=== PATIENT | male | born 1965 | race Caucasian/White ===

== ENCOUNTER 2017-03-04 17:18 | Inpatient (IN) | payer SELFPAY ==
--- NOTE | 2017-03-04 18:31 | ED PDOC ---
HPI: Psych/Substance Abuse Time Seen by Provider: 03/04/17 18:18 Chief Complaint (Nursing): Psychiatric Evaluation Chief Complaint (Provider): Psychiatric Evaluation History Per: Patient History/Exam Limitations: no limitations Current Symptoms Are (Timing): Still Present Suicide/Self Injury Attempted (Context): None Modifying Factor(s): None Severity: Moderate Associated Symptoms: Anxiety, Depression, Suicidal Thoughts. denies: Suicidal Plan Additional Complaint(s): 51 year old male patient with a pertinent medical history of anxiety and depression presents ro the ED for a psychiatric evaluation. He reports that he has been feeling anxious for the past 1x month and thinks it is because he moved from [place] to [place] (1x month ago) with his partner. He is currently taking Cymbalta (started taking it 4x months ago for depression). He reports that the anxiety is disrupting his life and his ability to work. He reports that he has been having suicidal thoughts, but no plan. PMD: Patient does not recall. Past Medical History Reviewed: Historical Data, Nursing Documentation, Vital Signs Vital Signs: Last Vital Signs Temp 97.5 F L 03/04/17 17:21 Pulse 109 H 03/04/17 17:21 Resp 20 03/04/17 17:21 BP 154/94 H 03/04/17 17:21 Pulse Ox 96 03/04/17 17:21 - Medical History PMH: Anxiety, Depression - Family History Family History: States: No Known Family Hx - Social History Alcohol: Other (has been sober from substances and alcohol for 13x years.) Drugs: Denies - Allergies Allergies/Adverse Reactions: Allergies Allergy/AdvReac Type Severity Reaction Status Date / Time No Known Allergies Allergy Verified 03/04/17 17:21 Review of Systems ROS Statement: Except As Marked, All Systems Reviewed And Found Negative Psych: Positive for: Anxiety, Depression, Suicidal ideation (no plan) Physical Exam - Reviewed Nursing Documentation Reviewed: Yes Vital Signs Reviewed: Yes - Physical Exam Appears: Positive for: Well, Non-toxic, No Acute Distress Head Exam: Positive for: ATRAUMATIC, NORMOCEPHALIC Skin: Positive for: Normal Color, Warm, Dry ENT: Negative for: Other (no alcohol on breath) Cardiovascular/Chest: Positive for: Regular Rate, Rhythm, Chest Non Tender Respiratory: Positive for: Normal Breath Sounds. Negative for: Respiratory Distress Neurologic/Psych: Positive for: Alert, Oriented (3x). Negative for: Mood/Affect - Laboratory Results Result Diagrams: 03/04/17 19:05 03/04/17 19:05 - ECG ECG: Positive for: Interpreted By Me, Viewed By Me ECG Rhythm: Positive for: Normal ST Segment, Sinus Rhythm (normal at 72). Negative for: ST/T Changes O2 Sat by Pulse Oximetry: 96 (RA) Pulse Ox Interpretation: Normal - Radiology X-Ray: Interpreted by Me, Viewed By Me X-Ray Interpretation: No Acute Disease (normal) Medical Decision Making Medical Decision Makin:18 Initial impression: 51 year old male with a history of depression and anxiety has anxiety and suicidal ideation. Initial plan: * crisis evaluation as ordered * XRay chest 2 views * EKG * alcohol serum * CMP * drug screen, urinary * CBC * reevaluation 18:26 Chest XRay is normal EKG is normal Pt will be admitted to psych for depression under MD lyla pt is medically cleared. Scribe Attestation: Documented by Soni Guy, acting as a scribe for Brittany Henry MD. Provider Scribe Attestation: All medical record entries made by the Scribe were at my direction and personally dictated by me. I have reviewed the chart and agree that the record accurately reflects my personal performance of the history, physical exam, medical decision making, and the department course for this patient. I have also personally directed, reviewed, and agree with the discharge instructions and disposition. Disposition - Clinical Impression Clinical Impression: Depression - Patient ED Disposition Is Patient to be Admitted: Yes - Disposition Disposition Time: 19:39 Condition: STABLE - Pt Status Changed To: Hospital Disposition Of: Inpatient - Admit Certification Admit to Inpatient:: After my assessment, the patient will require hospitalization for at least two midnights. This is because of the severity of symptoms shown, intensity of services needed, and/or the medical risk in this patient being treated as an outpatient. - POA Present On Arrival: None
[2017-03-04 19:23] LABS: BASO % 0.5 % (0.0-2.0); EOS # 0.2 K/uL (0.0-0.7); EOS % 3.5 % (0.0-4.0); LYMPH # 1.5 K/uL (1.0-4.3); LYMPH % 26.6 % (20.0-40.0); MEAN CELL VOLUME 89.2 fl (80.0-94.0); MEAN CORPUSCULAR HEMOGLOBIN 29.7 pg (27.0-31.0); MEAN CORPUSCULAR HGB CONC 33.3 g/dL (33.0-37.0); MEAN PLATELET VOLUME 8.6 fl (7.2-11.7); MONO # 0.7 K/uL (0.0-0.8); MONO % 12.4 % (0.0-10.0); NEUT # 3.3 K/uL (1.8-7.0); WHITE BLOOD COUNT 5.8 K/uL (4.8-10.8)
[2017-03-04 19:30] LABS: ALB/GLOB RATIO 1.4 (1.0-2.1); ALCOHOL SERUM < 10 mg/dl (0-10); ALKALINE PHOSPHATASE 59 U/L (38-126); ALT/SGPT 22 U/L (21-72); AST/SGOT 31 U/L (17-59); BILIRUBIN,TOTAL 0.6 mg/dl (0.2-1.3); BLOOD UREA NITROGEN 16 mg/dl (9-20); CALCIUM 9.4 mg/dL (8.4-10.2); CARBON DIOXIDE 27 mmol/L (22-30); CHLORIDE 108 mmol/L (98-107); GFR AFRICAN-AMERICAN > 60; GLUCOSE,RANDOM 104 mg/dL (75-110); POTASSIUM 3.9 MMOL/L (3.6-5.0); SODIUM 146 mmol/l (132-148); TOTAL PROTEIN 7.2 G/DL (6.3-8.2)
[2017-03-04 20:14] VITALS: O2SAT 99
[2017-03-04] MEDS ORDERED: Alum-Mag Hydrox-Simethicone Susp (30 mL) PO PRN (21:36)
[2017-03-04] MEDS ORDERED: Bismuth Subsalicylate 262 mg/15 ml Sus (240 ml) PO PRN (21:36)
[2017-03-04] MEDS ORDERED: DiphenhydrAMINE 50 mg/ml Inj IM PRN (23:29)
[2017-03-05 08:34] LABS: T4 7.66 ug/dl (5.5-11.0)
[2017-03-05 08:48] LABS: THYROID STIMULATING HORMONE 1.8 mIU/ML (0.46-4.68)
--- NOTE | 2017-03-05 09:02 | CARD ---
APPROVED REPORT EKG Measurement Heart [id number] <Conclusion> Normal sinus rhythm Normal ECG
--- NOTE | 2017-03-05 10:53 | CP.PCM.CON ---
History of Present Illness - History of Present Illness History of Present Illness: Reason for consult: per protocol HPI: 51 year old male with PMH anxiety admitted to psych due to anxiety. Patient states he has been working for the past month "just to get through the day" and yesterday after work patient "broke down" on the bus, and after he got home felt he needed to go to the emergency room. Patient is stable, he is currently in no acute distress. Patient has no other complaints at this time. ROS: per HPI all other systems reviewed and negative by me PMSH: anxiety FH: denies SH: denies tobacco, etoh, ivdu, currently working. Meds: per reconciliation NKDA Temp Pulse Resp BP Pulse Ox 97.7 F 65 19 114/70 99 03/05/17 05:50 03/05/17 05:50 03/05/17 05:50 03/05/17 05:50 03/04/17 20:10 Gen: WDWN, cooperative, alert HEENT: NCAT, PERRL, EOMI, no erythema, exudates, gross hearing intact, no lesions Neck: Soft, supple, no lymphadenopathy, no JVD Heart: +S1S2, RRR, No MRG Lung: CTAB, No WRR Abd: soft, NT, ND, BSx4, no HSM, no masses Ext: warm, well perfused, pedal pulses intact Neuro: AAOx3, Strength equal bilaterally UE/LE Skin: Warm, Dry, no rash Psych: Normal mood, affect with appropriate range 03/04/17 19:05 03/04/17 19:05 Start Date/Time Active Medications 03/04/17 21:36 Acetaminophen [Tylenol 325mg tab] 650 mg PO Q4 PRN Aluminum Hydroxide/Magnesium [Maalox Plus 30 ml] 30 ml PO Q4 PRN Bismuth Subsalicylate [Pepto-Bismol] 524 mg PO Q4 PRN Magnesium Hydroxide [Milk Of Magnesia] 30 ml PO HS PRN 03/04/17 22:00 risperiDONE [RisperDAL Tab] 0.5 mg PO HS 03/04/17 23:29 DiphenhydrAMINE [Benadryl] 50 mg IM Q6 PRN DiphenhydrAMINE [Benadryl] 50 mg PO Q6 PRN Haloperidol Lactate [Haldol] 5 mg IM Q4 PRN Haloperidol [Haldol] 5 mg PO Q4 PRN LORazepam [Ativan] 2 mg IM Q4 PRN LORazepam [Ativan] 2 mg PO Q4 PRN 03/04/17 23:30 DiphenhydrAMINE [Benadryl] 50 mg PO HS PRN 03/05/17 09:00 DULoxetine [Cymbalta] 60 mg PO DAILY 51 year old male with PMH anxiety admitted to psych due to anxiety. Patient states he has been working for the past month "just to get through the day" and yesterday after work patient "broke down" on the bus, and after he got home felt he needed to go to the emergency room. Patient is stable, he is currently in no acute distress. Patient has no other complaints at this time. Anxiety Management per psychiatric team Past Patient History - Past Social History Alcohol: Other (has been sober from substances and alcohol for 13x years.) Drugs: Denies - CARDIAC Hx Cardiac Disorders: No - PULMONARY Hx Tuberculosis: No - NEUROLOGICAL HX Cerebrovascular Accident: No Hx Seizures: No - HEMATOLOGICAL/ONCOLOGICAL Hx Cancer: No Hx Human Immunodeficiency Virus (HIV): No - GENITOURINARY/GYNECOLOGICAL Hx Sexually Transmitted Disorders: No - PSYCHIATRIC Hx Anxiety: Yes Hx Depression: Yes Hx Substance Use: No - ANESTHESIA Hx Anesthesia: No Hx Anesthesia Reactions: No Hx Malignant Hyperthermia: No Has any member of the family had a problem w/ anesthesia?: No Meds Allergies/Adverse Reactions: Allergies Allergy/AdvReac Type Severity Reaction Status Date / Time No Known Allergies Allergy Verified 03/04/17 17:21 - Medications Medications: Current Medications Acetaminophen (Tylenol 325mg Tab) 650 mg PO Q4 PRN PRN Reason: Pain, moderate (4-7) Al Hydrox/Mg Hydrox/Simethicone (Maalox Plus 30 Ml) 30 ml PO Q4 PRN PRN Reason: Dyspepsia Bismuth Subsalicylate (Pepto-Bismol) 524 mg PO Q4 PRN PRN Reason: Diarrhea Diphenhydramine HCl (Benadryl) 50 mg PO Q6 PRN PRN Reason: Extrapyramidal Symptoms Diphenhydramine HCl (Benadryl) 50 mg IM Q6 PRN PRN Reason: Extrapyramidal S/S Unable PO Diphenhydramine HCl (Benadryl) 50 mg PO HS PRN PRN Reason: Sleep Last Admin: 03/05/17 01:08 Dose: 50 mg Duloxetine HCl (Cymbalta) 60 mg PO DAILY [facility] Last Admin: 03/05/17 09:23 Dose: 60 mg Haloperidol (Haldol) 5 mg PO Q4 PRN PRN Reason: Agitation Haloperidol Lactate (Haldol) 5 mg IM Q4 PRN PRN Reason: Agitation, Unable to Take PO Lorazepam (Ativan) 2 mg PO Q4 PRN PRN Reason: Anxiety/Agitation Last Admin: 03/05/17 09:22 Dose: 2 mg Lorazepam (Ativan) 2 mg IM Q4 PRN PRN Reason: Anxiety/Agitation,Unable PO Magnesium Hydroxide (Milk Of Magnesia) 30 ml PO HS PRN PRN Reason: Constipation Risperidone (Risperdal Tab) 0.5 mg PO HS [facility] Last Admin: 03/04/17 21:13 Dose: 0.5 mg Results - Vital Signs Recent Vital Signs: Last Vital Signs Temp 97.7 F 03/05/17 05:50 Pulse 65 03/05/17 05:50 Resp 19 03/05/17 05:50 BP 114/70 03/05/17 05:50 Pulse Ox 99 03/04/17 20:10 - Labs Result Diagrams: 03/04/17 19:05 03/04/17 19:05 Labs: Laboratory Results - last 24 hr 03/05/17 06:30 Ferritin 138.0 Triglycerides 100 Cholesterol 223 H LDL Cholesterol Direct 135 H HDL Cholesterol 53 Vitamin B12 532 Free T4 1.00 Thyroxine (T4) 7.66 TSH 3rd Generation 1.80
--- NOTE | 2017-03-05 12:37 | PCM.PSYCH ---
Initial Psychiatric Evaluation - Initial Psychiatric Evaluation Type of Admission: Voluntary Legal Status: Capacity Chief Complaint (in patient's own words): i think the move affected me Patient's Reaction to Hospitalization: hopeful, cooperative History of Present Illness and Precipitating Events: 51 yo male living with his domestic partner of the last 13 years in [facility] where he moved from [place] 1 month ago. pt has been in outpt treatment for years for anxiety and depression, has never been hospitalized and has never had any suicidal thoughts/behaviors. pt reports he and partner moved back to the area a month ago for partner's job. 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 he reports that work usually provides structure and a way to free himself of anxiety. however, since his return, the pt's anxiety has become more persistent and intense. he is having trouble sleeping and was started on risperdal by his md in [place]. he reports he is anxious about everything and cannot focus or concentrate. he feels overwhelmed with worry, has racing heart and other symptoms of panic. he reports he has actually started to have suicidal thoughts because he is feeling hopeless that the anxiety will not go away. 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 pt wants to be linked to local treatment providers. pt has a history of being bullied. other stressors included a 1/2 sister has reached out after finding the patient on-line. pt reports his partner is very supportive and there is no relationship stress. Current Medications: Active Medications Generic Name Dose Route Start Last Admin Trade Name Freq PRN Reason Stop Dose Admin Acetaminophen 650 mg 03/04/17 21:36 Tylenol 325mg Tab PO Q4 PRN Pain, moderate (4-7) Al Hydrox/Mg Hydrox/Simethicone 30 ml 03/04/17 21:36 Maalox Plus 30 Ml PO Q4 PRN Dyspepsia Bismuth Subsalicylate 524 mg 03/04/17 21:36 Pepto-Bismol PO Q4 PRN Diarrhea Diphenhydramine HCl 50 mg 03/04/17 23:29 Benadryl PO Q6 PRN Extrapyramidal Symptoms Diphenhydramine HCl 50 mg 03/04/17 23:29 Benadryl IM Q6 PRN Extrapyramidal S/S Unable PO Diphenhydramine HCl 50 mg 03/04/17 23:30 03/05/17 01:08 Benadryl PO 50 mg HS PRN Administration Sleep Duloxetine HCl 90 mg 03/06/17 09:00 Cymbalta PO DAILY LOLY Haloperidol 5 mg 03/04/17 23:29 Haldol PO Q4 PRN Agitation Haloperidol Lactate 5 mg 03/04/17 23:29 Haldol IM Q4 PRN Agitation, Unable to Take PO Lorazepam 2 mg 03/04/17 23:29 Ativan IM Q4 PRN Anxiety/Agitation,Unable PO Lorazepam 1 mg 03/05/17 12:02 Ativan PO Q4 PRN Anxiety/Agitation Magnesium Hydroxide 30 ml 03/04/17 21:36 Milk Of Magnesia PO HS PRN Constipation Quetiapine Fumarate 25 mg 03/05/17 22:00 Seroquel PO HS LOLY Past Psychiatric History - Past Psychiatric History Previous Treatment History: None Explanation of prior treatment: states cymbalta has been very helpful for depression. History of Abuse: bullied in child [place] years History of ETOH/Drug Use: denies current use pt recovered alcoholic- 13 years sober History of Family Illness: denies Pertinent Medical Hx (Current Medical&Sleep Prob, Allergies): Allergies Allergy/AdvReac Type Severity Reaction Status Date / Time No Known Allergies Allergy Verified 03/04/17 17:21 DULoxetine [Cymbalta] 60 mg PO DAILY 03/04/17 risperiDONE [RisperDAL] 0.5 mg PO HS 03/04/17 denies chronic medical issues Review of Systems - Psychiatric Psychiatric: As Per HPI, Abnormal Sleep Pattern, Anxiety, Difficulty Concentrating, Suicidal Ideation (denies plan/intent) Mental Status Examination - Personal Presentation Personal Presentation: Looks stated age - Affect Affect: Constricted - Motor Activity Motor Activity: Calm - Reliability in Providing Information Reliability in Providing Information: Good - Speech Speech: Organized - Mood Mood: Anxious - Formal Thought Process Formal Thought Process: No Impairment - Obsessions/Compulsions Obsessions: No Compulsions: No - Cognitive Functions Orientation: Person, Place, Situation, Time Sensorium: Alert Attention/Concentration: Attentive Abstract Thinking: As evidence by abstract perception of proverbs Estimate of Intelligence: Average Judgement: Intact, as evidence by: Insight regarding need for hospitalization Memory: Recent intact, as evidence by: Ability to recall events of the day, Remote intact, as evidenced by: Abilit to recall sig. life events - Risk Risk: Suicidal (denies plan/intent. no past suicidal behaviors), Diminished functioning - Strength & Assets Inventory Strength & Assets Inventory: Intelligence, Family support, Employment history, Life experience, Cooperative DSM 5 DX - DSM 5 DSM 5 Diagnosis: major depression recurrent moderate adjustment disorder with anxiety r/o panic disorder alcohol dependence, in sustained remission - Recommended/Plan of Treatment Treatment Recommendations and Plan of Treatment: admit to 3ns for safety and observation gather collateral information provide supportive therapy adjust medications- increase cymbalta. dc risperdal and start low dose seroquel at night. will start low dose ativan prn for panic. discussed r/b/se with pt who agrees. hospitalist consult disposition planning- refer to outpt providers Projected ELOS: 3-5 days Prognosis: fair - Smoking Cessation Smoking Cessation Initiated: No
--- NOTE | 2017-03-05 15:37 | RAD ---
HISTORY: medical eval COMPARISON: No prior. TECHNIQUE: Chest PA and lateral FINDINGS: LUNGS: No active pulmonary disease. PLEURA: No significant pleural effusion identified. No pneumothorax apparent. CARDIOVASCULAR: Normal. OSSEOUS STRUCTURES: No significant abnormalities. VISUALIZED UPPER ABDOMEN: Normal. OTHER FINDINGS: None. IMPRESSION: No active disease.
[2017-03-05 17:22] LABS: FOLATE 13.6 ng/mL
[2017-03-05] MEDS: Magnesium Hydroxide Susp 30 ml UD PO PRN (21:28)
--- NOTE | 2017-03-06 14:24 | PCM.PYCHPN ---
Psychiatric Progress Note - Psychiatric Progress Note Patient seen today, length of contact: in treatment team Patient Chief Complaint: i feel a little better Problems Identified/Issues Discussed: pt discussed having poor sleep because roomate snoring. pt denies feeling chills , pain, dizziness or palpitations despite elevated temp this am. repeat was wnl. pt still anxious and worries that he cannot function if this level of anxiety continues. he reports some trouble urinating, but denies dysuria. he states this problem has been present in the past. Medical Problems: states cymbalta has been very helpful for depression. Medication Change: No Medical Record Reviewed: Yes Mental Status Examination - Cognitive Function Orientation: Person, Place, Situation, Time Memory: Intact Attention: WNL Concentration: WNL Association: WN Fund of Knowledge: WN Decription of patient's judgement and insights: fair - Mood Mood: Anxious - Affect Affect: Constricted - Formal Thought Process Formal Thought Process: No Impairment Psychotic Thoughts and Behaviors: denies any a/v hallucinations - Suicidal Ideation Suicidal Ideation: No Plan: denies currently - Homicidal Ideation Homicidal Ideation: No Goal/Treatment Plan - Goal/Treatment Plan Need for Continued Stay: Remain at risks for inpatient hospitalization, Discharge may exacerbated symptoms Progress Toward Problem(s) and Goals/Treatment Plan: mdd recurrent severe adjustment disorder with anxiety will continue current medications will check cbc/ua because of urinary complaints, increased temp encourage participation in groups disposition planning Estimated Date of D/C: 03/10/17
[2017-03-06 16:24] LABS: RBC URINE 2 /hpf (0-3); URINE BACTERIA FEW (<OCC); URINE BILIRUBIN NEGATIVE (NEGATIVE); URINE BLOOD MODERATE (NEGATIVE); URINE COLOR YELLOW (YELLOW); URINE GLUCOSE (UA) NEG (Normal); URINE KETONE NEGATIVE (NEGATIVE); URINE LEUKOCYTE ESTERASE SMALL Leu/uL (Negative); URINE PROTEIN NEGATIVE (NEGATIVE); URINE UROBILINOGEN 0.2-1.0 mg/dL (0.2-1.0); WBC URINE 31 /hpf (0-5)
[2017-03-06 16:59] LABS: BASO # 0.1 K/uL (0.0-0.2); BASO % 0.4 % (0.0-2.0); EOS % 0.2 % (0.0-4.0); HEMATOCRIT 41.4 % (35.0-51.0); LYMPH # 0.9 K/uL (1.0-4.3); LYMPH % 7.8 % (20.0-40.0); MEAN CELL VOLUME 89.1 fl (80.0-94.0); MEAN CORPUSCULAR HEMOGLOBIN 29.8 pg (27.0-31.0); MEAN CORPUSCULAR HGB CONC 33.4 g/dL (33.0-37.0); MEAN PLATELET VOLUME 8.2 fl (7.2-11.7); MONO # 1.3 K/uL (0.0-0.8); MONO % 10.4 % (0.0-10.0); NEUT # 9.9 K/uL (1.8-7.0); NEUT % 81.2 % (50.0-75.0); PLATELET COUNT 158 K/uL (130-400); RED CELL DISTRIBUTION WIDTH 13.6 % (11.5-14.5); WHITE BLOOD COUNT 12.2 K/uL (4.8-10.8)
[2017-03-06 17:38] LABS: NEUTROPHIL 80 % (42-75); TOTAL CELLS COUNTED 100
[2017-03-06] MEDS: Tmp-Smz 800 mg-160 mg DS Tab PO SCH (21:26)
[2017-03-06] MEDS: Magnesium Hydroxide Susp 30 ml UD PO PRN (21:28)
[2017-03-07] MEDS: Tmp-Smz 800 mg-160 mg DS Tab PO SCH ×2 (09:30→21:16)
--- NOTE | 2017-03-07 12:10 | PCM.PYCHPN ---
Psychiatric Progress Note - Psychiatric Progress Note Patient seen today, length of contact: discussed with team Patient Chief Complaint: i feel much better Problems Identified/Issues Discussed: pt reports feeling much better. urinary symptoms resolving. he reports good sleep. he reports he is "feeling more comfortable in my own skin" he denies any suicidal thoughts. denies side effects with seroquel and asks to try higher dose. he is future oriented and starting to focus on discharge. Medical Problems: states cymbalta has been very helpful for depression. Medication Change: No Medical Record Reviewed: Yes Mental Status Examination - Cognitive Function Orientation: Person, Place, Situation, Time Memory: Intact Attention: WNL Concentration: WNL Association: WN Fund of Knowledge: [facility] Decription of patient's judgement and insights: fair - Mood Mood: Neutral - Affect Affect: Constricted - Formal Thought Process Formal Thought Process: No Impairment - Suicidal Ideation Suicidal Ideation: No - Homicidal Ideation Homicidal Ideation: No Goal/Treatment Plan - Goal/Treatment Plan Need for Continued Stay: Remain at risks for inpatient hospitalization, Discharge may exacerbated symptoms Progress Toward Problem(s) and Goals/Treatment Plan: mdd recurrent severe adjustment disorder with anxiety will continue current medications with increase in seroquel to 50mg hs appreciate hospitalist help and treatment of uti disposition planning- tc discharge tomorrow or with outpt follow up Estimated Date of D/C: 03/10/17
[2017-03-08 06:09] VITALS: BP 126/79; PULSE 72; RESP 18; TEMP 98.1
[2017-03-08] MEDS: Tmp-Smz 800 mg-160 mg DS Tab PO SCH (08:50)
--- NOTE | 2017-03-08 09:52 | PCM.PYCHDC ---
Mental Status Examination - Mental Status Examination Orientation: Person, Place, Situation, Time Memory: Intact Mood: Neutral Affect: Broad Speech: Appropriate Attention: WNL Concentration: WNL Association: WNL Fund of Knowledge: WNL Formal Thought Process: No Impairment Description of patient's judgement and insight: Good I/J Psychotic Thoughts and Behaviors: No AH/VH/paranoia Suicidal Ideation: No Current Homicidal Ideation?: No Discharge Summary - Discharge Note Reason for Hospitalization: 51 yo male living with his domestic partner of the last 13 years in [facility] where he moved from [place] 1 month ago. pt has been in outpt treatment for years for anxiety and depression, has never been hospitalized and has never had any suicidal thoughts/behaviors. pt reports he and partner moved back to the area a month ago for partner's job. 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 he reports that work usually provides structure and a way to free himself of anxiety. however, since his return, the pt's anxiety has become more persistent and intense. he is having trouble sleeping and was started on risperdal by his md in [place]. he reports he is anxious about everything and cannot focus or concentrate. he feels overwhelmed with worry, has racing heart and other symptoms of panic. he reports he has actually started to have suicidal thoughts because he is feeling hopeless that the anxiety will not go away. 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 pt wants to be linked to local treatment providers. pt has a history of being bullied. other stressors included a 1/2 sister has reached out after finding the patient on-line. pt reports his partner is very supportive and there is no relationship stress. Consultations:: List each consultation separately and include: 1. Reason for request. 2. Findings. 3. Follow-up Consultations: Medicine consult Summary of Hospital Course include:: 1. Description of specific treatment plan utilized for patients during their course of treatmen. 2. Summarize the time- course for resolution of acute symptoms and/or regressed behaviors. 3. Describe issues identified and worked on during hospitalization. 4. Describe medication utilized. 5. Describe medical problems identified and treated. 6. Reassessment of suicide risk Summary of Hospital Course: Patient admitted to the hospital and stabilized on Cymbalta 90 mg PO Daily and Seroquel 50 mg PO HS. He reports improvement in mood and does not have any psychotic symptoms. He is psychiatrically stable for discharge. He is being treated for a UTI with Bactrim. - Final Diagnosis (DSM 5) Condition upon Discharge: STABLE DSM 5: major depression recurrent moderate adjustment disorder with anxiety r/o panic disorder alcohol dependence, in sustained remission Disposition: HOME/ ROUTINE Follow-up Treatment Plan: See SW note for outpatient follow-up details Prescriptions/Medication Reconciliation: Sulfamethoxazole/Trimethoprim [Bactrim DS Tab] 1 tab PO Q12 #6 tab DULoxetine [Cymbalta] 90 mg PO DAILY #90 ecc QUEtiapine [SEROquel] 50 mg PO HS #30 tab - Smoking Cessation Smoking Cessation Medication prescribed: No Reason for not providing: Not indicated - Antipsychotic Medications Pt discharged on 2 or more routine antipsychotic medications: No
== END 2017-03-08 12:20 | disposition home or self-care (01) | DRG 885 ==
LOC: H.ER 17:18 → H.ERHOLD 19:38 → H.STEP 20:30 → H.PSYCH 03-05 18:19 → H.STEP 03-07 20:17
PROVIDERS: ADMIT Psychiatry & Neurology Psychiatry; ATTEND Psychiatry & Neurology Psychiatry
PROC: GZHZZZZ Group Psychotherapy (ICD-10-PCS; principal; 2017-03-04)
PROC: GZ56ZZZ Individual Psychotherapy, Supportive (ICD-10-PCS; 2017-03-04)
DX: F33.1 Major depressive disorder, recurrent, moderate (principal); R45.851 Suicidal ideations; N39.0 Urinary tract infection, site not specified; F43.22 Adjustment disorder with anxiety; F10.21 Alcohol dependence, in remission